=== PATIENT | male | born 1990 | race Caucasian/White ===

== ENCOUNTER 2018-01-08 19:14 | Emergency (ER) | payer SELFPAY ==
[~2018-01-08] VITALS: Ht 182.9 cm; Wt 81.6 kg
--- NOTE | 2018-01-08 20:30 | ED GENERAL ADULT ---
History of Present Illness General Chief Complaint: General Adult Stated Complaint: "SEVERELY DEHYDRATED" PER FAMILY Source: patient Exam Limitations: no limitations Vital Signs & Intake/Output Vital Signs & Intake/Output Vital Signs Date Time Temp Pulse Resp B/P B/P Pulse O2 O2 Flow FiO2 Mean Ox Delivery Rate 01/09 2012 Room Air 01/08 1938 97.5 106 16 107/57 98 Allergies Coded Allergies: NO KNOWN ALLERGIES (12/01/12) Triage Note: PT STATES THAT HE WORKS OUTSIDE AND THAT HE FELLS WEAK, PT STATES "THE LAST 3 DAYS HAVE REALLY GOT TO ME" PT STATES THAT TODAY HE FEELS VERY FATIGUE AND MUSCLE TIGHTNESS. Triage Nurses Notes Reviewed? yes HPI: 27-year-old male presents with fatigue and muscle cramps. For the past 3 days patient has felt dehydrated warm with muscle cramping. Works construction. Negative for syncope, chest pain, shortness of breath, abdominal pain, nausea or vomiting, constipation or diarrhea, or headache. Denies recent trauma. Pt denies recent alcohol use or illicit substance use. Past History Travel History Traveled to [place] past 21 day No Medical History Any Pertinent Medical History? none Surgical History Surgical History: non-contributory Psychosocial History What is your primary language Afghan Tobacco Use: Current Daily Use Daily Tobacco Use Amount/Type: => 5 Cigarettes daily Family History Hx Contributory? No Review of Systems Review of Systems Constitutional: Reports: no symptoms. EENTM: Reports: no symptoms. Respiratory: Reports: no symptoms. Cardiovascular: Reports: no symptoms. GI: Reports: no symptoms. Genitourinary: Reports: no symptoms. Musculoskeletal: Reports: no symptoms, see HPI, muscle pain, muscle stiffness. Denies: back pain , joint pain, neck pain. Skin: Reports: no symptoms. Neurological/Psychological: Reports: no symptoms. Hematologic/Endocrine: Reports: no symptoms. Immunologic/Allergic: Reports: no symptoms. All Other Systems: Reviewed and Negative Physical Exam Physical Exam General Appearance: well developed/nourished, no apparent distress Head: atraumatic, normal appearance Eyes: Bilateral: normal appearance. Respiratory: lungs clear Cardiovascular: S1 S2 no M/G/R. Gastrointestinal: soft, non-tender Extremities: normal inspection Core Measures ACS in differential dx? No CVA/TIA Diagnosis: No Sepsis Present: No Sepsis Focused Exam Completed? No Progress Differential Diagnoses I considered the following diagnoses in my evaluation of the patient: Plan of Care: Orders Procedure Date/time Status CBC WITHOUT DIFFERENTIAL 01/08 2022 Complete BASIC METABOLIC PANEL 01/08 2022 Complete EKG 01/08 2022 Active Current Medications Sig/Melanie Start time Last Medication Dose Stop Time Status Admin Sodium Chloride 1,000 ML BOLUS ONE 01/08 2030 AC 01/08 (Normal Saline 0.9%) 01/08 Laboratory Tests 01/08/182045: Anion Gap 14, Estimated GFR 60, BUN/Creatinine Ratio 21.4, Glucose 113 H, Calcium 10.4 H, CBC w Diff NO MAN DIFF REQ, RBC 5.45, MCV 87.9, MCH 31.0, MCHC 35.2, RDW 13.0, MPV 8.5, Gran % 82.4 H, Lymphocytes % 11.1 L, Monocytes % 6.3, Eosinophils % 0.1, Basophils % 0.1, Absolute Granulocytes 12.5 H, Absolute Lymphocytes 1.7, Absolute Monocytes 1.0 H, Absolute Eosinophils 0, Absolute Basophils 0 Initial ED EKG: Sinus rhythm of 81. Normal axis. Nonspecific ST changes. Appropriate r-wave progression. No STEMI. Negative interval changes from prior ECG. Comments: Spoke with patient regarding lab results (elevated WBC count and BMP abnormalities). Pt states he is feeling better with the IV fluids. Return precautions given. Patient demonstrated understanding and agreed to care plan. Departure Departure Disposition: HOME OR SELF CARE Condition: Stable Clinical Impression Primary Impression: Heat exhaustion Qualifiers: Encounter type: initial encounter Qualified Code: T67.5XXA - Heat exhaustion, unspecified, initial encounter Secondary Impressions: Dehydration Referrals: Patient Has No Primary Care Dr (PCP/Family) Departure Forms: Customer Survey General Discharge Information Comments Spoke with patient regarding hydration. Return precautions given. Patient demonstrated understanding great care plan. Critical Care Note Critical Care Note Critical Care Time: non-applicable
[2018-01-08 20:55] LABS: ABSOLUTE BASOPHIL COUNT 0 /CUMM (0.0-0.2); ABSOLUTE EOSINOPHIL COUNT 0 /CUMM (0.0-0.7); ABSOLUTE GRANULOCYTE CT 12.5 /CUMM (1.4-6.5); ABSOLUTE LYMPH COUNT 1.7 /CUMM (1.2-3.4); BASOPHIL % 0.1 % (0.0-2.0); EOSINOPHIL % 0.1 % (0-5); HEMATOCRIT 47.9 % (42-52); MEAN CORPUSCULAR HGB CONC 35.2 G/DL (33.0-37.0); MEAN CORPUSCULAR VOLUME 87.9 FL (80.0-94.0); MEAN PLATELET VOLUME 8.5 FL (7.4-10.4); PLATELET COUNT 321 /CUMM (130-400); RED BLOOD CELL CT 5.45 /CUMM (4.70-6.10); WHITE BLOOD CELL COUNT 15.2 /CUMM (4.8-10.8)
[2018-01-08 21:04] LABS: GRANULOCYTE % 82.4 % (42.2-75.2)
[2018-01-08 21:50] VITALS: BP 111/78
== END 2018-01-08 21:51 ==
LOC: ERH 19:14
PROVIDERS: Emergency Medicine
DX: T67.5XXA Heat exhaustion, unspecified, initial encounter (principal); E86.0 Dehydration
CPT/HCPCS: 93005; 93010